=== PATIENT | male | born 1960 | race Caucasian/White ===

== ENCOUNTER 2020-06-17 04:30 | Emergency (ER) | payer BC ==
--- NOTE | 2020-06-17 05:07 | EDM.PDOC ---
ED HPI GENERAL MEDICAL PROBLEM - General Chief Complaint: Abdominal Pain Stated Complaint: ABDOMINAL PAIN Time Seen by Provider: 06/17/20 05:00 Source of Information: Reports: Patient History Limitations: Reports: No Limitations - History of Present Illness INITIAL COMMENTS - FREE TEXT/NARRATIVE: 59-year-old male with onset of diarrhea at about 6:54 PM last night after eating dinner. He reports that he developed pain in his epigastrium that seemed to go through to his back with a sharp stabbing pain at about 8:30 PM. The pain has worsened with time since then. He reports that the pain has basically been with him all through the night and he has been unable to find a comfortable position. He is rating the pain as an 8/10. No nausea or vomiting. Nothing really seems to make the pain better or worse. There is no change in the pain with palpation. He has noted no change in the discomfort when he drank liquids. No weakness or dizziness. No blood in his bowel movements. No cough. No sore throat. No antecedent problems. He states he was feeling completely well prior to this beginning. No dysuria. No hematuria. There are no other associated signs or symptoms. There are no other modifying factors. Onset: Other (Last night at approximately 6:54 PM.) Duration: Getting Worse Location: Reports: Abdomen Quality: Reports: Sharp, Stabbing Severity: Moderate (to severe.) Improves with: Reports: None Worsens with: Reports: None Context: Reports: Other (As above) Associated Symptoms: Reports: No Other Symptoms Treatments RARE/ENDANGERED SPECIES SPECIALIST: Reports: Other (see below) (Tums, Gas-X and Advil.) Upper Abdominal Pain Score (Numeric/FACES): 7 - Related Data Allergies Allergy/AdvReac Type Severity Reaction Status Date / Time No Known Allergies Allergy Verified 06/17/20 04:37 Home Meds: Home Meds Metoprolol Succinate 200 mg PO DAILY 06/17/20 [History] Simvastatin 40 mg PO DAILY 06/17/20 [History] Warfarin [Coumadin] 5 mg PO DAILY 06/17/20 [History] hydroCHLOROthiazide [Hydrochlorothiazide] 25 mg PO DAILY 06/17/20 [History] Past Medical History Cardiovascular History: Reports: Afib, Aneurysm (Ascending aortic aneurysm status post repair), High Cholesterol, Hypertension Hematologic History: Reports: Anticoagulation Therapy (On Coumadin) - Past Surgical History HEENT Surgical History: Reports: Other (See Below) (Cyst removed from vocal cord) Cardiovascular Surgical History: Reports: Aneurysm (Ascending aortic aneurysm repair with graft.) Social & Family History - Tobacco Use Smoking Status *Q: Never Smoker - Alcohol Use Alcohol Use History: Yes Alcohol Use Frequency: Socially (Occasionally) - Living Situation & Occupation Living situation: Reports: Occupation: Employed (Works at [employer]) ED ROS GENERAL - Review of Systems Review Of Systems: See Below Constitutional: Reports: No Symptoms HEENT: Reports: No Symptoms Respiratory: Reports: No Symptoms Cardiovascular: Reports: No Symptoms GI/Abdominal: Reports: Abdominal Pain : Reports: No Symptoms Musculoskeletal: Reports: No Symptoms Skin: Reports: No Symptoms Neurological: Reports: No Symptoms Hematologic/Lymphatic: Reports: Other (Chronically anticoagulated on Coumadin.) Immunologic: Reports: No Symptoms ED EXAM, GI/ABD - Physical Exam Exam: See Below Exam Limited By: No Limitations General Appearance: Alert, WD/WN, Moderate Distress Eyes: Bilateral: Normal Appearance, EOMI Ears: Normal External Exam, Hearing Grossly Normal Nose: Normal Inspection, Normal Mucosa, No Blood Throat/Mouth: Normal Inspection, Normal Oropharynx, Normal Voice, No Airway Compromise Head: Atraumatic, Normocephalic Neck: Normal Inspection, Supple, Non-Tender Respiratory/Chest: No Respiratory Distress, Lungs Clear, Normal Breath Sounds, No Accessory Muscle Use, Chest Non-Tender Cardiovascular: Normal Peripheral Pulses, Regular Rate, Rhythm, No Murmur GI/Abdominal Exam: Normal Bowel Sounds, Soft, Non-Tender, No Distention, No Mass Back Exam: Normal Inspection, Full Range of Motion. No: CVA Tenderness (R), CVA Tenderness (L) Extremities: Normal Inspection, Normal Range of Motion, Non-Tender, Normal Capillary Refill, Pedal Edema (Trace bilaterally.) Neurological: Alert, Oriented, CN II-XII Intact, Normal Cognition, No Motor/Sensory Deficits Psychiatric: Normal Affect Skin Exam: Warm, Dry, Intact, Normal Color, No Rash EKG INTERPRETATION EKG Date: 06/17/20 Time: 04:52 Rhythm: NSR Rate (Beats/Min): 104 P-Wave: Present QRS: Normal ST-T: Other (Anterior and lateral T-wave inversion and depression.) QT: Normal Comparison: NA - No Prior EKG Course - Vital Signs Last Recorded V/S: Last Vital Signs Temp 36.4 C 06/17/20 04:46 Pulse 100 06/17/20 08:14 Resp 18 06/17/20 08:14 BP 136/94 H 06/17/20 08:14 Pulse Ox 97 06/17/20 08:14 - Orders/Labs/Meds Orders: Active Orders 24 hr Category Date Time Status EKG Documentation Completion [RC] ASDIRECTED Care 06/17/20 05:20 Active Abdomen Ltd [US] Stat Exams 06/17/20 08:15 Ordered Abdomen Pelvis w Cont [CT] Stat Exams 06/17/20 06:41 Taken Sodium Chloride 0.9% [Normal Saline] 1,000 ml Med 06/17/20 05:30 Active IV ASDIRECTED Sodium Chloride 0.9% [Saline Flush] Med 06/17/20 05:19 Active 10 ml FLUSH ASDIRECTED PRN Peripheral IV Insertion Adult [OM.PC] Routine Oth 06/17/20 05:19 Ordered EKG 12 Lead [EK] Routine Ther 06/17/20 05:19 Ordered Medication Orders Sodium Chloride (Normal Saline) 1,000 mls @ 100 mls/hr IV ASDIRECTED ROLAND Last Admin: 06/17/20 05:38 Dose: 100 mls/hr Documented by: PRICILLA Sodium Chloride (Saline Flush) 10 ml FLUSH ASDIRECTED PRN PRN Reason: Keep Vein Open Last Admin: 06/17/20 05:36 Dose: 10 ml Documented by: PRICILLA Labs: Laboratory Tests 06/17/20 06/17/20 06/17/20 Range/Units 05:40 05:40 05:40 WBC 10.7 (4.5-12.0) X10-3/uL RBC 5.21 (4.30-5.75) x10(6)uL Hgb 16.3 (13.5-17.8) g/dL Hct 47.0 (30.0-51.3) % MCV 90.3 (80-96) fL MCH 31.3 (27.7-33.6) pg MCHC 34.6 (32.2-35.4) g/dL RDW 13.4 (11.5-15.5) % Plt Count 213 (125-369) X10(3)uL MPV 7.8 (7.4-10.4) fL Add Manual Diff Yes Neutrophils % (Manual) 80 (46-82) % Band Neutrophils % 6 (0-6) % Lymphocytes % (Manual) 10 L (13-37) % Monocytes % (Manual) 4 (4-12) % PT 20.9 H (9.0-11.1) sec INR 2.03 H (1.00-1.24) Sodium 137 (135-145) mmol/L Potassium 3.7 (3.5-5.3) mmol/L Chloride 101 (100-110) mmol/L Carbon Dioxide 27 (21-32) mmol/L BUN 27 H (7-18) mg/dL Creatinine 1.4 H (0.70-1.30) mg/dL Est Cr Clr Drug Dosing TNP Estimated GFR (MDRD) 52 L (>60) BUN/Creatinine Ratio 19.3 (9-20) Glucose 189 H (80-116) mg/dL Calcium 9.5 (8.6-10.2) mg/dL Magnesium (1.8-2.5) mg/dL Total Bilirubin 1.0 (0.1-1.3) mg/dL AST 28 H (5-25) IU/L ALT 52 H (12-36) U/L Alkaline Phosphatase 105 (56-112) IU/L Troponin I (4.0-60.3) pg/mL C-Reactive Protein (0.5-0.9) mg/dL Total Protein 7.5 (6.0-8.0) g/dL Albumin 4.2 (3.2-4.6) g/dL Globulin 3.3 g/dL Albumin/Globulin Ratio 1.3 Lipase (73-393) U/L 06/17/20 06/17/20 Range/Units 05:40 05:40 WBC (4.5-12.0) X10-3/uL RBC (4.30-5.75) x10(6)uL Hgb (13.5-17.8) g/dL Hct (30.0-51.3) % MCV (80-96) fL MCH (27.7-33.6) pg MCHC (32.2-35.4) g/dL RDW (11.5-15.5) % Plt Count (125-369) X10(3)uL MPV (7.4-10.4) fL Add Manual Diff Neutrophils % (Manual) (46-82) % Band Neutrophils % (0-6) % Lymphocytes % (Manual) (13-37) % Monocytes % (Manual) (4-12) % PT (9.0-11.1) sec INR (1.00-1.24) Sodium (135-145) mmol/L Potassium (3.5-5.3) mmol/L Chloride (100-110) mmol/L Carbon Dioxide (21-32) mmol/L BUN (7-18) mg/dL Creatinine (0.70-1.30) mg/dL Est Cr Clr Drug Dosing Estimated GFR (MDRD) (>60) BUN/Creatinine Ratio (9-20) Glucose (80-116) mg/dL Calcium (8.6-10.2) mg/dL Magnesium 2.0 (1.8-2.5) mg/dL Total Bilirubin (0.1-1.3) mg/dL AST (5-25) IU/L ALT (12-36) U/L Alkaline Phosphatase (56-112) IU/L Troponin I 4.8 (4.0-60.3) pg/mL C-Reactive Protein 0.8 (0.5-0.9) mg/dL Total Protein (6.0-8.0) g/dL Albumin (3.2-4.6) g/dL Globulin g/dL Albumin/Globulin Ratio Lipase 147 (73-393) U/L Meds: Medications Generic Name Dose Route Start Last Admin Trade Name Freq PRN Reason Stop Dose Admin Sodium Chloride 1,000 mls @ 100 mls/hr 06/17/20 05:30 06/17/20 05:38 Normal Saline IV 100 mls/hr ASDIRECTED ROLAND Administration Sodium Chloride 10 ml 06/17/20 05:19 06/17/20 05:36 Saline Flush FLUSH 10 ml ASDIRECTED PRN Administration Keep Vein Open Discontinued Medications Generic Name Dose Route Start Last Admin Trade Name Freq PRN Reason Stop Dose Admin Hydromorphone HCl 1 mg 06/17/20 05:21 06/17/20 05:35 Dilaudid IVPUSH 06/17/20 05:22 1 mg ONETIME ONE Administration Sodium Chloride 500 mls @ 999 mls/hr 06/17/20 05:21 06/17/20 05:38 Normal Saline IV 06/17/20 05:51 999 mls/hr .BOLUS ONE Administration Iopamidol 100 ml 06/17/20 06:57 06/17/20 07:12 Isovue-370 (76%) IV 06/17/20 06:58 100 ml . DIRECTED ONE Administration Ondansetron HCl 4 mg 06/17/20 05:21 06/17/20 05:36 Zofran IVPUSH 06/17/20 05:22 4 mg ONETIME ONE Administration - Radiology Interpretation Free Text/Narrative:: CT scan of the abdomen and pelvis shows 2 gallstones with one of them being lodged in the neck of the gallbladder they are rather large stones and there appeared to be a small amount of pericholecystic fluid but no biliary ductal dilatation. This was per the [facility] radiologist. Right upper quadrant ultrasound showed evidence of gallstones but there was no pericholecystic fluid and the gallbladder wall was not thick. There was no evidence of acute cholecystitis. - Re-Assessments/Exams Free Text/Narrative Re-Assessment/Exam: 06/17/20 06:40: Patient has remained hemodynamically stable. He reports that the pain is now a 4/10 after the pain medication. He feels much more comfortable and has been resting. The lab tests show lavation in his AST and ALT and he is therapeutic on his INR. The cervical was normal and the H&H were normal. His electrolyte profile was normal. Lipase was normal. I will send the patient for CT of his abdomen and pelvis with IV contrast. I discussed this with the patient and he is in agreement with this plan. 06/17/20 07:45: Patient is feeling much improved now. His pain is now 2/10 and seems to be going away. He is nontoxic in has remained vitally stable. CT scan of the abdomen and pelvis shows gallstones. I will discuss the patient's case with Dr. Ortiz. 06/17/20 08:15: I discussed the patient's case with Dr. Ortiz and he would like the patient to get a right upper quadrant ultrasound prior to discharge. He does feel the patient could be discharged with normal labs and pain going away. He will arrange to see the patient send (probably tomorrow) to arrange for definitive management of the symptomatic cholelithiasis in the near future. I discussed this with the patient and he would be in agreement with this plan. 06/17/20 08:52: Right upper quadrant ultrasound has been completed and does not show any evidence of acute cholecystitis.. The patient remains hemodynamically stable. His pain has essentially resolved. He is stable for discharge at this point and Dr. Ortiz will follow-up with the patient as above.. Departure - Departure Time of Disposition: 08:55 Disposition: Home, Self-Care 01 Condition: Good (Improved) Clinical Impression: Symptomatic cholelithiasis, Biliary colic - Discharge Information Instructions: Cholelithiasis, [id number], Biliary Colic, Adult, Gallbladder Eating Plan Referrals: Roderick Saldivar MD [Primary Care Provider] - Adriel Ortiz MD [Physician] - Forms: ED Department Discharge Additional Instructions: Your blood tests were reassuring. The CT scan of your abdomen and pelvis showed evidence of gallstones and I feel that this is the cause of your pain. You will need to have your gallbladder removed in the future to prevent recurrent episodes of this pain and possible serious problems associated with infection that could occur. I discussed your case with Dr. Ortiz, general surgeon associated with [facility] in [place], and he will arrange to see you in the next few days and arrange for definitive treatment for the gallstones in the near future. You should increase your fluid intake. Emergency department for unrelenting pain, unrelenting vomiting, fever, severe weakness or any other concerning sign or symptom. Sepsis Event Note (ED) - Evaluation Sepsis Screening Result: No Definite Risk - Focused Exam Vital Signs: Vital Signs Temp Pulse Resp BP Pulse Ox 06/17/20 08:14 100 18 136/94 H 97 06/17/20 05:47 110 H 16 144/85 H 97 06/17/20 04:46 36.4 C 106 H 18 153/102 H 100 - My Orders Last 24 Hours: My Active Orders 06/17/20 05:19 Sodium Chloride 0.9% [Saline Flush] 10 ml FLUSH ASDIRECTED PRN Peripheral IV Insertion Adult [OM.PC] Routine EKG 12 Lead [EK] Routine 06/17/20 05:20 EKG Documentation Completion [RC] ASDIRECTED 06/17/20 05:30 Sodium Chloride 0.9% [Normal Saline] 1,000 ml IV ASDIRECTED 06/17/20 06:41 Abdomen Pelvis w Cont [CT] Stat 06/17/20 08:15 Abdomen Ltd [US] Stat - Assessment/Plan Last 24 Hours: My Active Orders 06/17/20 05:19 Sodium Chloride 0.9% [Saline Flush] 10 ml FLUSH ASDIRECTED PRN Peripheral IV Insertion Adult [OM.PC] Routine EKG 12 Lead [EK] Routine 06/17/20 05:20 EKG Documentation Completion [RC] ASDIRECTED 06/17/20 05:30 Sodium Chloride 0.9% [Normal Saline] 1,000 ml IV ASDIRECTED 06/17/20 06:41 Abdomen Pelvis w Cont [CT] Stat 06/17/20 08:15 Abdomen Ltd [US] Stat
[2020-06-17] MEDS ORDERED: Sodium Chloride 0.9% 10 ML Syringe FLUSH PRN (05:19)
[2020-06-17] MEDS ORDERED: HYDROmorphone 2 MG/ML SDV IVPUSH ONE (05:21)
[2020-06-17] MEDS ORDERED: Ondansetron 4 MG/2 ML SDV IVPUSH ONE (05:21)
[2020-06-17] MEDS ORDERED: Sodium Chloride 0.9% 500 ML IV ONE (05:21)
[2020-06-17] MEDS ORDERED: Sodium Chloride 0.9% 1,000 ML IV SCH (05:30)
[2020-06-17] MEDS ORDERED: Iopamidol 755 Mg/ML 100 ML Bottle IV ONE (06:57)
--- NOTE | 2020-06-17 10:05 | US ---
INDICATION: Upper abdominal pain, gallstones on CT. RIGHT UPPER QUADRANT/GALLBLADDER ULTRASOUND: Multiple ultrasonic images were obtained with 2-D real-time and color flow imaging and revealed an enlarged gallbladder with calculus in the base of the gallbladder which was shown to move. Another calculus which was noted on CT scan of 06/17/20 in the cystic duct - neck of the gallbladder area was not delineated. Minimal pericholecystic fluid is noted. The wall of the gallbladder was not grossly thickened. Ultrasonic Shields sign was not able to be assessed due to medication status of the patient. Common bile duct was 5.4 mm which is within normal range for this patient. The liver had a fairly normal appearance The pancreas was not demonstrated. The right kidney had an appearance suggesting some irregularity of the cortex compatible with cortical scarring. IMPRESSION: Prominent gallbladder with single large movable calculus 2.5 cm in diameter, some pericholecystic fluid. Suspect acute cholecystitis from findings on CT. MTDD
== END 2020-06-17 09:06 | disposition home or self-care (01) ==
LOC: FB.ED 04:30
DX: K80.70 Calculus of gallbladder and bile duct without cholecystitis without obstruction (principal); R60.0 Localized edema; I48.91 Unspecified atrial fibrillation; I10 Essential (primary) hypertension; E78.00 Pure hypercholesterolemia, unspecified; Z79.01 Long term (current) use of anticoagulants; Z79.899 Other long term (current) drug therapy
CPT/HCPCS: 36415; 74177; 76705; 80053; 83690; 83735; 84484; 85025; 85610; 86140; 93005; 96374; 96375; 99284-25; J1170; J2405; J7030; J7040; Q9967

== ENCOUNTER 2020-07-11 06:42 | Day surgery (SDC) | payer BC ==
[2020-07-11] MEDS ORDERED: Midazolam 1 MG/ML 2 ML SDV IV ONE (06:43)
[2020-07-11] MEDS ORDERED: Ondansetron 4 MG/2 ML SDV IVPUSH ONE (06:43)
[2020-07-11] MEDS ORDERED: Propofol 200 MG/20 ML SDV IV ONE (06:43)
[2020-07-11] MEDS ORDERED: Lactated Ringers 1,000 ML IV ONE (06:43)
[2020-07-11] MEDS ORDERED: Neostigmine Methylsulfate 10 MG/10 ML MDV IVPUSH ONE (06:43)
[2020-07-11] MEDS ORDERED: Rocuronium 50 MG/5 ML Vial IV ONE (06:43)
[2020-07-11] MEDS ORDERED: Labetalol 100 MG/20 ML MDV IV ONE (06:43)
[2020-07-11] MEDS ORDERED: fentaNYL 100 MCG/2 ML SDV IV ONE (06:43)
[2020-07-11] MEDS ORDERED: Ketorolac 30 MG/ML SDV IVPUSH ONE (06:43)
[2020-07-11] MEDS ORDERED: Glycopyrrolate 0.2 MG/ML 5 ML MDV IV ONE (06:43)
[2020-07-11] MEDS ORDERED: Sodium Chloride 0.9% 10 ML Syringe FLUSH PRN (07:00)
[2020-07-11] MEDS ORDERED: Lactated Ringers 1,000 ML IV SCH (07:00)
[2020-07-11] MEDS ORDERED: cefOXitin 2 GM Vial IVPUSH ONE (07:00)
[2020-07-11] MEDS ORDERED: cefOXitin 2 GM in Sodium Chloride 0.9% 100 ML IV ONE (07:00)
[2020-07-11] MEDS ORDERED: Bupivacaine 0.5% 30 ML SDV INJECT ONE (09:01)
[2020-07-11] MEDS ORDERED: Lidocaine 1% with EPINEPHrine 1:100,000 20 ML MDV INJECT ONE (09:01)
--- NOTE | 2020-07-11 09:32 | PCM.OPNOTE ---
- General Post-Op/Procedure Note Date of Surgery/Procedure: 07/11/20 Operative Procedure(s): lap cholecystectomy Findings: gallbladder with single stone critical view obtained Pre Op Diagnosis: cholelithiasis without obstruction or infection Post-Op Diagnosis: Same Anesthesia Technique: General ET Tube, Local (9 ml 1 % lido with epi/0.5% buvip.) Primary Surgeon: Adriel Ortiz Anesthesia Provider: Samuel Ordonez Pathology: gallbladder and contents. EBL in mLs: 5 Complications: None Condition: Good Free Text/Narrative:: see dictation [id number]
--- NOTE | 2020-07-11 12:54 | OR ---
DATE OF OPERATION: 07/11/2020 SURGEON: Adriel Ortiz MD PROCEDURE PERFORMED: Laparoscopic cholecystectomy. PREOPERATIVE DIAGNOSIS: Cholelithiasis without obstruction or cholecystitis. POSTOPERATIVE DIAGNOSIS: Cholelithiasis without obstruction or cholecystitis. INDICATIONS FOR PROCEDURE: This is a 60-year-old male who has a history of a gallstone. It gives him intermittent episodes of abdominal pain, recently had an attack, presents now for removal of his gallbladder. DESCRIPTION OF OPERATION: After an excellent general anesthetic was administered via endotracheal tube, the patient was prepped and draped in usual sterile manner. A 1:1 mixture of 1% lidocaine with epinephrine, 0.5% bupivacaine was used to infiltrate the periumbilical port site. A small vertical midline incision was carried out with a #15 scalpel blade. Blunt dissection was carried out exposing the midline fascia and 2 stay sutures of 0 Vicryl placed on either side of the midline fascia which was then elevated. The midline fascia was incised, and the abdominal cavity was entered bluntly. After digital palpation to ensure no adhesions, a 10.5 mm Anya trocar was inserted. The balloon at the end of the trocar was insufflated, and then, the patient's abdomen was insufflated to 15 mmHg using carbon dioxide. The patient was placed in reverse Trendelenburg with an airplane to the left. Under direct visualization, three 5 mm ports were placed; one in the midline epigastrium and two below the right costal margin at the proximal level of the midclavicular and anterior axillary line. This was done using the following technique for all ports. Full thickness injection of our local, small stab incisions were made through the skin with 15 scalpel blade and then the trocars were inserted under direct visualization. It should be noted that a grand total of 9 mL of our local mixture was used for the procedure. The gallbladder was grasped. The infundibulum was grasped, some mild adhesions were taken down using careful blunt dissection with the Jami dissector. The cystic duct and cystic artery were then exposed without difficulty, and after achieving this critical view, 2 clips were placed proximally on the cystic duct and one distally. This was then transected. The process was repeated for the cystic artery as well. L-hook cautery dissection was used to dissect the gallbladder free from the gallbladder fossa. The specimen was then passed into a specimen bag and delivered out through the periumbilical port. The site was inspected. There were several small areas that had a minimal amount of oozing. These were controlled with electrocautery. The gallbladder fossa and the area around the gallbladder were irrigated and the gutter along the right hepatic lobe was also irrigated until clear. The three superior 5 mm trocars were removed under direct visualization, and after assuring no bleeding on any of these sites, pneumoperitoneum was released and the 10 mm Anya was released as well. A [id number] 0 Vicryl was used to reapproximate the subcu fascia. The skin was closed with celia. Needle, sponge, and instrument counts were reported as correct. The patient was taken to recovery in good condition. /[id number] /CLINTONL
== END 2020-07-11 11:18 | disposition home or self-care (01) ==
LOC: FB.SDS 06:42
PROVIDERS: ATTEND Surgery
DX: K80.10 Calculus of gallbladder with chronic cholecystitis without obstruction (principal); I10 Essential (primary) hypertension; I48.20 Chronic atrial fibrillation, unspecified; F41.8 Other specified anxiety disorders; E78.49 Other hyperlipidemia; Z98.890 Other specified postprocedural states; Z79.899 Other long term (current) drug therapy
CPT/HCPCS: 00790; 47562; 88304; J0694; J1885; J2250; J2405; J2704; J2710; J3010; J3490; J7120

== ENCOUNTER 2021-08-19 09:37 | Emergency (ER) | payer BC ==
[2021-08-19] MEDS ORDERED: Sodium Chloride 0.9% 10 ML Syringe FLUSH PRN (09:44)
[2021-08-19] MEDS ORDERED: Diltiazem 25 MG/5 ML SDV IVPUSH STA (10:08)
[2021-08-19] MEDS ORDERED: Sodium Chloride 0.9% 1,000 ML IV SCH (10:15)
--- NOTE | 2021-08-19 10:51 | CR ---
CHEST ONE VIEW INDICATION: Question COVID. FINDINGS: AP portable upright view of the chest 08/19/21 - no comparisons. The heart appears enlarged with post median sternotomy change. The aorta is somewhat tortuous. Overlying EKG leads are noted. There may be some minimal patchy infiltrate in the right mid lung field laterally with slightly increased markings in the lower lung larios. The markings may be on the basis of fibrosis, but should be correlated clinically as this appearances makes it difficult to exclude minimal patchy bronchopneumonia. However, no gross consolidating pneumonia or effusion was identified. IMPRESSION: 1. ASHD with post median sternotomy change. 2. Possibility of infiltrate in the right mid lung field versus nodular change with heavy markings in the lower lung larios extending into the mid lung larios, possibly fibrotic in nature. This appearance makes it difficult to exclude minimal patchy bronchopneumonia. MTDD
--- NOTE | 2021-08-19 11:34 | EDM.PDOC ---
ED HPI GENERAL MEDICAL PROBLEM - General Chief Complaint: Cardiovascular Problem Stated Complaint: IRREGULAR HEART BEAT Time Seen by Provider: 08/19/21 09:50 Source of Information: Reports: Patient History Limitations: Reports: No Limitations - History of Present Illness INITIAL COMMENTS - FREE TEXT/NARRATIVE: Patient presented to the ED because of palpitations and irregular heart beat since . There is no associated chest pain but has dyspnea on exertion. He was diagnosed with yesterday-his s/s 1 week ago were:fever, chills, cough, malaise and watery diarrhea for 3 days which has resolved. 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 - Related Data Allergies Allergy/AdvReac Type Severity Reaction Status Date / Time No Known Allergies Allergy Verified 08/19/21 09:50 Home Meds: Home Meds Metoprolol Succinate 200 mg PO DAILY 06/17/20 [History] Simvastatin 40 mg PO BEDTIME 06/17/20 [History] Warfarin [Coumadin] 5 mg PO MOWEFR 06/17/20 [History] hydroCHLOROthiazide [Hydrochlorothiazide] 25 mg PO DAILY 06/17/20 [History] Acetaminophen 1,000 mg PO Q6HR PRN 07/10/20 [History] Multivitamin 1 each PO DAILY 07/10/20 [History] Omeprazole 40 mg PO ACBREAKFAST 07/10/20 [History] Indomethacin [Indocin] 50 mg PO DAILY PRN 08/19/21 [History] Warfarin [Coumadin] 2.5 mg PO SUTUTHSA 08/19/21 [History] Past Medical History HEENT History: Reports: Impaired Vision Cardiovascular History: Reports: Afib, Aneurysm, Arrhythmia, High Cholesterol, Hypertension Other Cardiovascular History: aortic aneurysm repair 2004, VALVULAR HEART DISEASE Respiratory History: Reports: COPD, SOB Gastrointestinal History: Reports: GERD Genitourinary History: Reports: Other (See Below) Other Genitourinary History: ERECTILE DYSFUNCTION Musculoskeletal History: Reports: Arthritis, Back Pain, Chronic, Fracture, Gout Other Musculoskeletal History: hx fx L foot, L leg, L kneecap, L wrist, R wrist, L arm Neurological History: Reports: None Psychiatric History: Reports: Anxiety, Depression Endocrine/Metabolic History: Reports: Obesity/BMI 30+ Hematologic History: Reports: Anticoagulation Therapy, Blood Transfusion(s) - Infectious Disease History Infectious Disease History: Reports: Chicken Pox, Measles, Mumps, Novel Coronavirus - Past Surgical History HEENT Surgical History: Reports: Tonsillectomy Cardiovascular Surgical History: Reports: AAA Repair, Aneurysm, Other (See Below) Other Cardiovascular Surgeries/Procedures: AORTIC ARCH ANEURYSM REPAIR, CARDIAC CATHETERIZATION, ECHO TRANSESOPHAGEAL GI Surgical History: Reports: Cholecystectomy Other GI Surgeries/Procedures: LARYNGOSCOPY Social & Family History - Family History Family Medical History: No Pertinent Family History - Tobacco Use Tobacco Use Status *Q: Former Tobacco User Years of Tobacco use: 15 Used Tobacco, but Quit: Yes Month/Year Tobacco Last Used: 1989 - Caffeine Use Caffeine Use: Reports: Soda - Recreational Drug Use Recreational Drug Use: No - Living Situation & Occupation Living situation: Reports: Occupation: Employed (Works at [employer]) ED ROS GENERAL - Review of Systems Review Of Systems: See Below Constitutional: Reports: No Symptoms HEENT: Reports: No Symptoms Respiratory: Reports: No Symptoms Cardiovascular: Reports: Dyspnea on Exertion Endocrine: Reports: No Symptoms GI/Abdominal: Reports: No Symptoms : Reports: No Symptoms Musculoskeletal: Reports: No Symptoms Skin: Reports: No Symptoms ED EXAM, GENERAL - Physical Exam Exam: See Below Exam Limited By: No Limitations General Appearance: Alert, No Apparent Distress Eye Exam: Bilateral Eye: PERRL Ears: Normal External Exam, Normal Canal Nose: Normal Inspection, Normal Mucosa, No Blood Throat/Mouth: Normal Inspection, Normal Lips, Normal Teeth Head: Atraumatic, Normocephalic Neck: Normal Inspection, Supple, Non-Tender, Full Range of Motion Respiratory/Chest: No Respiratory Distress, Lungs Clear, Normal Breath Sounds, No Accessory Muscle Use, Chest Non-Tender Cardiovascular: Normal Peripheral Pulses, No Edema, No Gallop, No JVD, No Murmur, No Rub, Tachycardia, Irregularly Irregular GI/Abdominal: Normal Bowel Sounds, Soft, Non-Tender, No Organomegaly, No Distention, No Abnormal Bruit Back Exam: Normal Inspection, Full Range of Motion Extremities: Normal Inspection, Normal Range of Motion, Non-Tender, No Pedal Edema, Normal Capillary Refill Neurological: Alert, Oriented, CN II-XII Intact #1 Interpretation EKG Date: 08/19/21 Time: 08:34 Rhythm: A-Fib Rate (Beats/Min): 119 Spencer: Normal QRS: Normal ST-T: Normal QT: Normal Comparison: No Change EKG Interpretation Comments: AFIB with RVR Cardizem 15 mg IV x1 Cardizem CD 120 PO x1 Course - Vital Signs Text/Narrative:: Lab/EKG/CXR result was reviewed and discussed with patient Cardizem 15 mg IV x1 Cardizem CD 120 mg PO x1 Last Recorded V/S: Last Vital Signs Temp 36.0 C L 08/19/21 09:45 Pulse 100 08/19/21 11:56 Resp 22 H 08/19/21 09:45 BP 121/84 08/19/21 11:56 Pulse Ox 97 08/19/21 09:45 - Orders/Labs/Meds Orders: Active Orders 24 hr Category Date Time Status Saline Lock Insert [OM.PC] Routine Oth 08/19/21 09:44 Ordered Labs: Laboratory Tests 08/19/21 08/19/21 08/19/21 Range/Units 10:05 10:05 10:05 PT 14.8 H (9.0-11.1) sec INR 1.40 H (1.00-1.24) APTT 33.9 H (24.4-33.2) SECONDS D-Dimer, Quantitative 0.47 (0.0-0.59) mg/LFEU Troponin I 7.5 (4.0-60.3) pg/mL NT-Pro-B Natriuret Pep 315 H (<=125) pg/mL 08/19/21 Range/Units 15:18 PT (9.0-11.1) sec INR (1.00-1.24) APTT (24.4-33.2) SECONDS D-Dimer, Quantitative (0.0-0.59) mg/LFEU Troponin I 7.9 (4.0-60.3) pg/mL NT-Pro-B Natriuret Pep (<=125) pg/mL Meds: Medications Discontinued Medications Generic Name Dose Route Start Last Admin Trade Name Freq PRN Reason Stop Dose Admin Diltiazem HCl 15 mg 08/19/21 10:08 08/19/21 10:17 Diltiazem 25 Mg/5 Ml Sdv IVPUSH 08/19/21 10:09 15 mg NOW STA Administration Diltiazem HCl 120 mg 08/19/21 11:41 08/19/21 11:56 Diltiazem 120 Mg Cap.Cd PO 08/19/21 11:42 120 mg NOW STA Administration Sodium Chloride 1,000 mls @ 999 mls/hr 08/19/21 10:15 08/19/21 10:17 Normal Saline IV 999 mls/hr ASDIRECTED ROLAND Administration Sodium Chloride 10 ml 08/19/21 09:44 08/19/21 10:10 Sodium Chloride 0.9% 10 Ml Syringe FLUSH 10 ml ASDIRECTED PRN Administration Keep Vein Open Departure - Departure Time of Disposition: 16:30 Disposition: Home, Self-Care 01 Condition: Good Clinical Impression: Afib, Palpitations, COVID-19 virus infection Instructions: Palpitations, [id number], Atrial Fibrillation, [id number] Referrals: Nadja Reynoso PA-C [Primary Care Provider] - Forms: ED Department Discharge Additional Instructions: Please read discharge instructions on Afib and Palpitations Call the coumadin clinic tomorrow for adjustment of your dose Call your floral associate tomorrow and ask if they can see you earlier than Sep. Sepsis Event Note (ED) - Focused Exam Vital Signs: Vital Signs Temp Pulse Pulse Resp BP BP Pulse Ox 08/19/21 11:56 100 121/84 08/19/21 09:45 36.0 C L 112 H 22 H 112/80 97 - My Orders Last 24 Hours: My Active Orders 08/19/21 09:44 Saline Lock Insert [OM.PC] Routine - Assessment/Plan Last 24 Hours: My Active Orders 08/19/21 09:44 Saline Lock Insert [OM.PC] Routine
[2021-08-19] MEDS ORDERED: Diltiazem 120 MG Cap.CD PO STA (11:41)
== END 2021-08-19 16:55 | disposition home or self-care (01) ==
LOC: FB.ED 09:37
DX: I48.91 Unspecified atrial fibrillation (principal); U07.1 COVID-19; E78.00 Pure hypercholesterolemia, unspecified; I10 Essential (primary) hypertension; J44.9 Chronic obstructive pulmonary disease, unspecified; K21.9 Gastro-esophageal reflux disease without esophagitis; E66.9 Obesity, unspecified; Z68.32 Body mass index [BMI] 32.0-32.9, adult; Z79.01 Long term (current) use of anticoagulants; Z79.899 Other long term (current) drug therapy; Z87.891 Personal history of nicotine dependence
CPT/HCPCS: 36415; 71045; 83880; 84484; 85379; 85610; 85730; 96374; 99285-25; A9270-GY; J3490; J7030